=== PATIENT | male | born 1965 | race Caucasian/White ===

== ENCOUNTER 2019-03-10 18:15 | Emergency (ER) | payer OTHER, BC ==
[~2019-03-10] VITALS: Ht 182.9 cm; Wt 129.3 kg
--- OUTSIDE RECORDS SUMMARY | 2019-03-10 18:18 | XMS ---
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 Lan VISIT COUNT (12 MO.) 2 CARLENE Carr TOTAL 2 NOTE: Visits indicate total known visits. ED/C VISIT TRACKING (12 MO.) 03/10/2019 18:16 CARLENE Cumm[facility] [place] TYPE: Emergency COMPLAINT: - RIGHT KNEE INJURY 08/27/2018 18:07 CARLENE Cummings [place] TYPE: Emergency COMPLAINT: - R KNEE INURY DIAGNOSES: - Sprain of unspecified site of right knee, initial encounter - Personal history of nicotine dependence - Other and unspecified overexertion or strenuous movements or postures, initial encounter - Pain in right knee INPATIENT VISIT TRACKING (12 MO.) No inpatient visits to display in this time frame [email or web address]
[2019-03-10] MEDS ORDERED: LEXAPRO10 MG PO (18:36)
[2019-03-10] MEDS ORDERED: LIPITOR80 MG GT (18:36)
[2019-03-10] MEDS ORDERED: ZESTRIL40 MG PO (18:36)
[2019-03-10] MEDS ORDERED: NORCO 5-325 TA1 EACH PO (20:15)
== END 2019-03-10 20:37 | disposition home or self-care (01) ==
LOC: ED 18:15
DX: R60.0 Localized edema (principal); I10 Essential (primary) hypertension; I25.2 Old myocardial infarction; Z87.891 Personal history of nicotine dependence; Z79.899 Other long term (current) drug therapy
CPT/HCPCS: 93971; 99283-25

== ENCOUNTER 2025-05-05 08:30 | Emergency (ER) | payer OTHER ==
[~2025-05-05] VITALS: Ht 182.9 cm; Wt 130.8 kg
[~2025-05-05 08:30] MED LIST: DICLOFENAC SODI75 MG PO; HYDROCODON-ACE1 EA11 PO; LEXAPRO10 MG PO; LIPITOR80 MG PO; METOPROLOL SUCC25 MG PO; NORCO 5-325 TA1 EACH PO; SUBOXONE 12 MG1 EACH SL; ZESTRIL40 MG PO
[2025-05-05 09:30] LABS: BASOPHILS 0.3 % (0.2-1.2); EOSINOPHILS 1.1 % (0.8-7.0); LYMPHOCYTES 7.6 % (21.8-53.1); MCH 28.0 PG (25.7-32.2); MCHC 31.8 g/dL (32.3-36.5); MCV 88.0 fL (79.0-92.2); MONOCYTES 6.5 % (5.3-12.2); NEUTROPHILS 84.2 % (34.0-67.9); RBC 5.25 M/uL (4.63-6.08)
[2025-05-05] MEDS ORDERED: SODIUM CHLORIDE 0.9% 1,000 ML IV PRN ×2 (09:30→10:30)
[2025-05-05 09:49] LABS: ALT (SGPT) 27.0 U/L (14-59); AST (SGOT) 22.0 U/L (15-37); GLOMERULAR FILTRATION RATE,EST 60.0 mL/min (>60); PROTEIN, TOTAL 7.3 g/dL (6.4-8.2); UREA NITROGEN 19.0 mg/dL (7-18)
[2025-05-05] MEDS ORDERED: LOPERAMIDE2 M1 PO (11:30)
[2025-05-05] MEDS ORDERED: ONDANSETRON ODT4 MG PO (11:30)
[2025-05-05 11:43] VITALS: BP 137/71
== END 2025-05-05 11:44 | disposition home or self-care (01) ==
LOC: ED 08:30
PROVIDERS: Emergency Medicine
DX: K52.9 Noninfective gastroenteritis and colitis, unspecified (principal); N17.9 Acute kidney failure, unspecified; I25.2 Old myocardial infarction; I10 Essential (primary) hypertension; Z95.5 Presence of coronary angioplasty implant and graft; Z87.891 Personal history of nicotine dependence; Z88.8 Allergy status to other drugs, medicaments and biological substances; Z79.899 Other long term (current) drug therapy
CPT/HCPCS: 36415; 80053; 83690; 85025; 96361; 96374; 99284-25; J2405; J7030